=== PATIENT | female | born 1985 | race Caucasian/White ===

== ENCOUNTER 2023-03-18 13:41 | Emergency (ER) | payer OTHER, SELFPAY ==
[2023-03-18 14:06] VITALS: BP 131/73; PULSE 79; RESP 16; TEMP 36.1; O2SAT 100
--- NOTE | 2023-03-18 14:54 | ED.EYEPROB ---
HPI - Eye Problem General Chief complaint: Eye Problems Stated complaint: [place] eye Time Seen by Provider: 03/18/23 14:54 Source: patient, RN notes reviewed and old records reviewed Mode of arrival: ambulatory Limitations: no limitations History of Present Illness HPI Narrative: 29 year old female presents to [facility] with complaints of redness and increased watering of her left eye with some swelling of her upper and lower eyelids which started today. 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 Patient denies any changes in her vision with visual acuity bilaterally 20/20 with glasses. MD chief complaint: eye redness and other (itching and burning left eye) Onset (ago): hour(s) (this morning) Onset description: awoke with symptoms Location: left eye Severity scale (1-10): 4 Treatments Prior to Arrival: other (warm compress) Related Data Allergies Allergy/AdvReac Type Severity Reaction Status Date / Time No Known Allergies Allergy Verified 03/18/23 15:58 Review of Systems Review of Systems: CONSTITUTIONAL: Denies fever, chills, or sweats. EYES: Denies visual changes. Reports redness,, irritation, discharge.left eye with some swelling of upper and lower eyelids ENT: Denies rhinorrhea, congestion, sore throat, or otalgia. CARDIOVASCULAR: Denies chest pain, palpitations, or edema. RESPIRATORY: Denies cough or dyspnea. SKIN: Denies rash or itching. 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 There is no relevant family history pertinent to the presenting complaint Exam Narrative: GENERAL: Well-appearing, well-nourished, and in no acute distress. HEAD: Normocephalic, atraumatic. EYES: PERRLA and EOMI. Upper and lower eyelid left eye minimal swelling noted. No periorbital cellulitis noted. Sclera and conjunctivae injected left eye with some burning and itching, mucoid discharge ENT: Nares clear, no rhinorrhea or epistaxis. Mucous membranes moist. NECK: Supple.no lymphadenopathy CHEST: Clear to auscultation. No respiratory distress.SAO2 100% on room air HEART: Regular rate and rhythm. No murmur heard. Normal peripheral pulses. SKIN: Warm, dry, no rash. NEURO: No focal deficits. Alert and oriented x3. Course Course Emergency Course: Patient is aware of diagnosis, understands and agrees to treatment plan. Anticipatory guidance given. Patient agrees to follow-up as directed and is aware of reasons to seek care at the emergency department. Portions of this record may have been created with voice recognition software Level of Care: Express Care Visit Vital Signs Vital signs: Vital Signs Temperature 36.1 C L 03/18/23 14:06 Pulse Rate 79 03/18/23 14:06 Respiratory Rate 16 03/18/23 14:06 Blood Pressure 131/73 03/18/23 14:06 Pulse Oximetry 100 03/18/23 14:06 Temperature 36.1 C L 03/18/23 14:06 Pulse Rate 79 03/18/23 14:06 Respiratory Rate 16 03/18/23 14:06 Blood Pressure 131/73 03/18/23 14:06 Pulse Oximetry 100 03/18/23 14:06 Reviewed MDM - Eye Problem MDM Narrative Medical decision making narrative: Consideration of the following conditions may be warranted for the presenting problem, they are not final diagnoses: Bacterial conjunctivitis, allergic conjunctivitis, viral conjunctivitis, foreig
== END 2023-03-18 15:07 | disposition home or self-care (01) ==
PROVIDERS: Emergency Provider Registered Nurse
DX: H10.89 Other conjunctivitis (principal)
CPT/HCPCS: 99213; G0463

== ENCOUNTER 2023-08-10 10:22 | Emergency (ER) | payer OTHER, SELFPAY ==
--- NOTE | ~2023-08-10 | XR_ITS ---
XR knee RT min 4V 08/10/2023 10:56 Indication: Right knee pain and swelling Procedure: 3 views right knee Comparison: No prior studies for comparison. Findings: Small joint effusion. Mild patellofemoral compartment osteoarthritis. No fracture or trauma tic malalignment. Impression: 1: Small knee effusion. Reviewed, dictated and finalized at location A. Impression: 1: Small knee effusion.
--- NOTE | 2023-08-10 10:24 | ED_ITS ---
HPI - Extremity Injury (Lower) General Chief Complaint: Extremity Injury, Lower Stated Complaint: Right Knee Pain Time Seen by Provider: 08/10/23 10:23 Source: patient Mode of arrival: ambulatory Limitations: no limitations History of Present Illness HPI Narrative: Patient is a 38-year-old female presents with right knee pain over the past 2 weeks. Patient states over the past 2 days it has become more swollen and painful. Patient states she has been taking 400 mg of ibuprofen twice a day along with using ice, elevation and compression at night. Patient states she is on her feet majority of the day. Denies any redness, numbness, tingling or weakness to the rest of the leg. Related Data Allergies Allergy/AdvReac Type Severity Reaction Status Date / Time No Known Allergies Allergy Verified 03/18/23 15:58 Review of Systems Review of Systems: All systems reviewed & are unremarkable except as noted in HPI and below Constitutional: Constitutional: Denies body ache(s), Denies chills, Denies fatigue, Denies fever(s), Denies headache(s), Denies malaise and Denies weakness Eyes: Eyes: Denies blurry vision, Denies irritation and Denies loss of vision ENT: Denies otalgia, Denies headache(s), Denies nasal discharge, Denies sinus pain and Denies sore throat Cardiovascular: Cardiovascular: Denies chest pain, Denies irregular heart rhythm and Denies dyspnea Respiratory: Respiratory: Denies dyspnea Gastrointestinal: Gastrointestinal: Denies abdominal pain, Denies melena, Denies hematochezia, Denies diarrhea, Denies nausea and Denies vomiting Musculoskeletal: Musculoskeletal: Denies back pain, Denies myalgias and Reports arthralgias Integumentary/Breasts: Skin/Breast: Denies pruritus and Denies rash Neurologic: Denies headache(s), Denies loss of vision and Denies weakness Psychiatric: Psychiatric: Reports no additional psychiatric complaints Endocrine: Endocrine: Denies fatigue PMFSH Social History Social History Smoking status: Never smoker Alcohol intake: current Alcohol use details: social Substance use type: does not use Living arrangements: with family Additional occupation/education comments: Works at [employer] Gender identity (if verbalized by the patient): Female Comments At time of signature, agree with nursing past medical, surgical, social and fa adele history. There is no relevant family history pertinent to the presenting complaint. Exam Const: General: cooperative, healthy appearing, comfortable, no acute distress and well nourished Nutritional Appearance: well nourished Orientation/consciousness: patient oriented x3 Limitations: no limitations HENMT: Head: normal to inspection, normocephalic and atraumatic Ears: hearing grossly normal bilaterally and external ears normal Face/Nose/Sinus: Normal external nose present, normal facial exam and face symmetric Face and sinus: normal facial exam and face symmetric Mouth: Yes lip normal Eyes: General: appearance normal, both eyes and all related structures Alignment and Position: alignment normal and position normal Periorbital: per iorbital findings normal Eyelids: eyelids normal Pupils: Equal, round and reactive pupils present EOM: EOMs intact bilaterally Neck: Neck: normal visual inspection, full ROM and supple Chest: Chest palpation & inspection: normal inspection of the chest Resp: Effort & Inspection: normal respiratory effort and able to speak in complete sentences Auscultation: clear to auscultation bilaterally Cardio: Rate: regular rate Rhythm: regular rhythm Heart sounds: S1 normal heart sound present and S2 normal heart sound present GI: Inspection: normal to inspection Skin: General skin exam: normal color and no rashes or lesions noted Neuro: General: patient oriented x3 and moves all extremities Cranial nerves: Yes Equal, round and reactive pupils present Speech: normal speech Gait exam (Neuro): Normal gait present Extrem: General: normal to inspection, full ROM and no edema Right lower extremity: knee Details: tenderness Location: of the lateral joint line and of the infrapatellar area, swelling Location: of the infrapatellar area, normal ROM and knee ligament exam abnormal Details: valgus stress test normal Details: pain noted and varus stress test normal Details: pain noted; no ecchymosis, no deformity and no unusual warmth Psych: Appearance: grossly normal and well kempt Mental Status: mental status grossly normal Speech and movement: Normal speech and movement present Affect: normal affect Attitude: cooperative Thought process: Normal thought process present Course Course Emergency Course: Patient is aware of diagnosis, understands and agrees to treatment plan. Anticipatory guidance given. Patient agrees to follow-up as directed and is aware of reasons to seek care at the emergency department. Portions of this record may have been created with voice recognition software [employer] of Care: Express Care Visit Vital Signs Vital signs: Reviewed MDM - Extremity Injury (Lower) MDM Narrative Medical decision making narrative: Exam findings show no acute concerns or changes; patient is non-toxic appearing and is in no distress.? Patient is appropriate for outpatient treatment and follow-up. Discharge instructions reviewed with patient, as well as provided in writing per nursing staff. The instructions also include specific and strict return/GO TO THE ER as well as f/u information. All questions have been answered, and the patient deny any further questions with discharge and discharge plan. Differential Diagnosis Differential diagnosis: Likely acute internal derangement of knee and other (Knee sprain, knee effusion) Medical Records Attestation: I reviewed the patient's medical records. Imaging Data Radiologist's impression: XR knee RT min 4V 08/10/2023 10:56 Indication: Right knee pain and swelling Procedure: 3 views right knee Comparison: No prior studies for comparison. Findings: Small joint effusion. Mild patellofemoral compartment osteoarthritis. No fracture or traumatic malalignment. Impression: 1: Small knee effusion. Discharge Plan Discharge Clinical Impression: Effusion of knee joint right Knee sprain Qualifiers: Encounter type: initial encounter Involved ligament of knee: lateral collateral ligament Laterality: right Qualified Code(s): S83.421A - Sprain of lateral collateral ligament of right knee, initial encounter Patient Disposition: Home, Self-Care Condition: Stable Instructions: Knee Sprain (ED), Swollen Knee Joint (ED) Additional Instructions: Xray showed no fracture. Minimize activities that aggravate the condition The RICE protocol. Follow the RICE protocol as soon as possible after your injury: Rest your knee by not walking on it. Ice should be immediately applied to keep the swelling down. It can be used for 20 to 30 minutes, three or four times daily. Do not apply ice directly to your skin. Compression dressings, bandages or lisa-wraps will immobilize and support your injured knee. Elevate your knee above the level of your heart as often as possible during the first 48 hours. Medication: Nonsteroidal anti-inflammatory drugs (NSAIDs) such as ibuprofen and naproxen can help control pain and swelling. Because they improve function by both reducing swelling and controlling pain, they are a better option for mild sprains than narcotic pain medicines. Please schedule a follow-up visit with your personal physician for further evaluation and treatment within 1week OR If your symptoms persist, change or worsen significantly before you can contact your personal physician then please, without delay, go to the emergency department for further evaluation. Prescriptions: No Action ofloxacin 0.3 % drops See Rx Instructions .ROUTE .COMPLEX Qty: 10 0RF Rx Instructions: put 1-2 drps into affected eye(s) every 2-4 h x 2 days, then 1-2 drps 4 times/day days 3-7 Follow-up/Referrals: You Pike MD [Physician] - 3 Days (XR knee RT min 4V 08/10/2023 10:56 Indication: Right knee pain and swelling Procedure: 3 views right knee Comparison: No prior studies for comparison. Findings: Small joint effusion. Mild patellofemoral compartment osteoarthritis. No fracture or traumatic malalignment. Impression: 1: Small knee effusion.) UNKNOWN,DOCTOR [Non-Staff] - Lisa Clemens DO [Physician] - 3 Days Stand Alone Forms: Work/School Release IP Time of Disposition: 11:10
[2023-08-10 10:38] VITALS: BP 118/77; PULSE 77; RESP 16; TEMP 36.2; O2SAT 100
== END 2023-08-10 11:15 | disposition home or self-care (01) ==
PROVIDERS: Emergency Provider Nurse Practitioner Family
DX: M25.461 Effusion, right knee (principal); S83.421A Sprain of lateral collateral ligament of right knee, initial encounter; X58.XXXA Exposure to other specified factors, initial encounter
CPT/HCPCS: 73564; 99213; G0463